=== PATIENT | male | born 1980 | race Caucasian/White ===

== ENCOUNTER 2018-06-18 03:54 | Emergency (ER) | payer OTHER | END 2018-06-18 06:37 | disposition left against medical advice (07) | LOC: M ED 03:54 | DX: S69.90XA Unspecified injury of unspecified wrist, hand and finger(s), initial encounter (principal); Z53.21 Procedure and treatment not carried out due to patient leaving prior to being seen by health care provider ==

== ENCOUNTER 2018-06-18 08:21 | Emergency (ER) | payer OTHER | END 2018-06-18 09:05 | disposition home or self-care (01) | LOC: M ED 08:21 | DX: S62.634A Displaced fracture of distal phalanx of right ring finger, initial encounter for closed fracture (principal); W22.8XXA Striking against or struck by other objects, initial encounter; Y92.89 Other specified places as the place of occurrence of the external cause; F17.200 Nicotine dependence, unspecified, uncomplicated; J30.81 Allergic rhinitis due to animal (cat) (dog) hair and dander | CPT/HCPCS: 99283 ==

== ENCOUNTER 2022-09-20 08:29 | Emergency (ER) | payer OTHER ==
[~2022-09-20] VITALS: Ht 182.9 cm; Wt 116.4 kg
[2022-09-20 08:29] VITALS: BP 144/88
[2022-09-20] MEDS ORDERED: INDO-16 (08:36)
[2022-09-20] MEDS ORDERED: METH-1164 (08:36)
[2022-09-20] MEDS ORDERED: ACET1TAB55 (08:36)
== END 2022-09-20 11:04 | disposition left against medical advice (07) ==
LOC: M ED 08:29
DX: Z53.21 Procedure and treatment not carried out due to patient leaving prior to being seen by health care provider (principal)